=== PATIENT | male | born 1960 | race Caucasian/White ===

== ENCOUNTER 2018-10-20 07:25 | Outpatient (CLI) | payer OTHER | END 2018-10-20 07:40 | disposition home or self-care (01) | LOC: SONOGRAMA 07:25 | DX: I11.9 Hypertensive heart disease without heart failure (principal); R10.10 Upper abdominal pain, unspecified ==

== ENCOUNTER 2018-12-29 07:06 | Outpatient (CLI) | payer OTHER | END 2018-12-29 07:10 | disposition home or self-care (01) | LOC: SONOGRAMA 07:06 | DX: E03.8 Other specified hypothyroidism (principal); E04.2 Nontoxic multinodular goiter ==